=== PATIENT | female | born 1940 | race African-American/Black ===

== ENCOUNTER 2018-05-06 10:11 | Emergency (ER) | payer MEDICARE, OTHER ==
[~2018-05-06] VITALS: Ht 154.9 cm; Wt 72.1 kg
--- NOTE | 2018-05-06 10:11 | NUR ---
PT BBRA FROM HOME FOR GLF; L HIP PAIN; PT AAOX4, PT ON MONITOR, VSS, NAD NOTED, MD AT BEDSIDE FOR EVAL
[2018-05-06] MEDS ORDERED: ONDANSETRON HCL/PF 4 MG/2 ML VIAL ONE (10:23)
[2018-05-06] MEDS ORDERED: HYDROMORPHONE 1 MG/1 ML DISP.SYRIN ONE (10:23)
[2018-05-06] MEDS ORDERED: IV NS 0.9% 1,000 ML BAG IV ONE (10:30)
[2018-05-06] MEDS ORDERED: HYDROMORPHONE INJ 2 MG/ML DISP.SYRIN IV ONE (10:30)
[2018-05-06] MEDS ORDERED: ONDANSETRON HCL/PF 4 MG/2 ML VIAL IVP ONE (10:30)
[2018-05-06 10:43] LABS: BASOPHILS % (AUTO) 0.2 % (0.0-2.0); EOSINOPHILS % (AUTO) 0.3 % (0.0-6.0); HEMATOCRIT 40 % (33-45); HEMOGLOBIN 13.4 g/dL (11.5-14.8); LYMPHOCYTES # (AUTO) 1.1 /CMM (0.8-4.8); LYMPHOCYTES % (AUTO) 6.8 % (20.0-44.0); MEAN CORPUSCULAR HGB CONC 34 g/dl (31.0-36.0); MEAN CORPUSCULAR VOLUME 96 fL (82-100); MONOCYTES # (AUTO) 0.6 /CMM (0.1-1.30); MONOCYTES % (AUTO) 3.5 % (2.0-12.0); NEUTROPHILS # (AUTO) 14.3 /CMM (1.8-8.9); NEUTROPHILS % (AUTO) 89.2 % (43.0-81.0); PLATELET COUNT (AUTO) 212 /CMM (150-450); RED BLOOD CELL COUNT(AUTO) 4.13 MIL/uL (4.0-5.2); WHITE BLOOD COUNT (AUTO) 16.1 K/uL (4.3-11.0)
[2018-05-06 10:51] LABS: CALCIUM, SERUM 9.6 mg/dL (8.5-10.1); CARBON DIOXIDE 27 mmol/L (21-32); CHLORIDE 105 mmol/L (98-107); CREATININE 1.1 mg/dL (0.6-1.3); GLUCOSE 143 mg/dL (74-106); POTASSIUM 3.6 mmol/L (3.5-5.1); SODIUM SERUM 138 mmol/L (136-145); UREA NITROGEN, BLOOD 28 mg/dL (7-18)
--- NOTE | 2018-05-06 11:00 | NUR ---
PT FOR CLOSED REDUCTION OF LT HIP DISLOCATION UNDER MODERATE SEDATION. PT SIGNED CONSENT AND VERBALIZES UNDERSTANDING OF PROCEDURE, KEITH MURPHY PT'S FRIEND IS AVAILABLE TO PICK PT UP INCASE OF D/C HOME.
[2018-05-06] MEDS ORDERED: PROPOFOL 20 ML IV ONE (11:12)
--- NOTE | 2018-05-06 11:15 | NUR ---
PT GIVEN PROPOFOL 70MG IVP FOR MODERATE SEDATION UNDER THE SUPERVISION OF DR. PICKETT.
--- NOTE | 2018-05-06 11:18 | NUR ---
PT FOR MODERATION SEDATION; SEE MODERATE SEDATION ASSESSMENT INTERVENTION.
[2018-05-06] MEDS ORDERED: PROPOFOL 200 MG/20 ML VIAL IV ONE (11:30)
--- NOTE | 2018-05-06 11:38 | NUR ---
PT IS AWAKE, ALERT, VERBALLY RESPONSIVE. PT AAOX4, NOT IN ANY DISTRESS, VSS.
[2018-05-06 12:49] VITALS: BP 150/68
--- NOTE | 2018-05-06 12:49 | NUR ---
Patient discharged to home in stable condition. Written and verbal after care instructions given. Patient verbalizes understanding of instruction. IV removed. Catheter intact and site benign. Pressure and 4x4 applied to site. No bleeding noted.
== END 2018-05-06 12:50 | disposition home or self-care (01) ==
LOC: ER 10:13
DX: S73.005A Unspecified dislocation of left hip, initial encounter (principal); E11.9 Type 2 diabetes mellitus without complications; I10 Essential (primary) hypertension; Z96.643 Presence of artificial hip joint, bilateral; X50.9XXA Other and unspecified overexertion or strenuous movements or postures, initial encounter; Y93.E1 Activity, personal bathing and showering; Y92.89 Other specified places as the place of occurrence of the external cause; Y99.8 Other external cause status
CPT/HCPCS: 27265; 36415; 71045; 73503 ×2; 80048; 85025; 93005; 96361; 96374; 96375; 99284; A4606; J1170; J2405; J2704; J7030; 73502